=== PATIENT | male | born 1960 | race Caucasian/White ===

== ENCOUNTER → 2016-08-24 | Outpatient (REF) | LOC: WSOH 08:55 | DX: Z00.00 Encounter for general adult medical examination without abnormal findings (principal) ==

== ENCOUNTER → 2016-08-24 | Outpatient (REF) | LOC: WSOH 10:00 | DX: Z02.89 Encounter for other administrative examinations (principal) ==

== ENCOUNTER 2017-02-18 23:38 | Emergency (ER) | payer BC ==
[~2017-02-18] VITALS: Ht 182.9 cm; Wt 104.5 kg
[2017-02-18 23:43] VITALS: BP 180/88; PULSE 76; TEMP 98.1
== END 2017-02-19 01:43 | disposition left against medical advice (07) ==
LOC: COL.ER 23:38
DX: L50.9 Urticaria, unspecified (principal); Z96.652 Presence of left artificial knee joint

== ENCOUNTER 2018-02-16 01:23 | Emergency (ER) | payer BC ==
[~2018-02-16] VITALS: Ht 182.9 cm; Wt 106.8 kg
[2018-02-16 01:26] VITALS: TEMP 98.3
[2018-02-16] MEDS ORDERED: LOPRESSOR 550 MG/TAB PO (01:59)
[2018-02-16] MEDS ORDERED: NORVASC 5MG5 MG/TAB PO (02:00)
[2018-02-16] MEDS ORDERED: ZOCOR 20MG20 MG PO (02:00)
[2018-02-16] MEDS ORDERED: PRINIVIL20 MG PO ×2 (02:00→02:01)
[2018-02-16] MEDS ORDERED: LEXAPRO 10MG10 MG PO (02:00)
[2018-02-16] MEDS ORDERED: PLAVIX 75MG TAB75 MG PO (02:00)
[2018-02-16 02:01] LABS: BASO % 0.3 % (0.0-2.0); EOS # 0.2 (0.0-0.7); EOS % 2.1 % (0-4.0); GRAN # 6.3 (1.4-6.5); HEMATOCRIT 45.8 % (42.0-52.0); HEMOGLOBIN 15.1 g/dl (13.5-18.0); LYMPH # 2.2 (1.2-3.4); LYMPH % 23.4 % (20.0-51.0); MEAN CELL VOLUME 83 fl (80.0-100.0); MEAN CORPUSCULAR HEMOGLOBIN 27 pg (27.0-31.0); MEAN CORPUSCULAR HGB CONC 33 g/dl (33.0-37.0); MONO # 0.6 (0.1-0.6); MONO % 6.1 % (1.7-9.3); PLATELET COUNT 203 K/mm3 (130-400); RED BLOOD COUNT 5.51 M/mm3 (4.20-5.60); REDCELL DISTRIBUTION WIDTH-CV 13.9 % (11.5-14.5)
[2018-02-16] MEDS ORDERED: SINGULAIR 110 MG/TAB PO (02:01)
[2018-02-16 02:16] LABS: ALBUMIN 4.1 gm/dL (3.5-5.0); BILIRUBIN,TOTAL 0.6 mg/dL (0.0-1.0); CALCIUM 8.9 mg/dL (8.4-10.2); TOTAL PROTEIN 7.5 gm/dL (6.4-8.2)
[2018-02-16 02:48] VITALS: PULSE 54
[2018-02-16 04:13] VITALS: BP 151/97
== END 2018-02-16 04:13 | disposition home or self-care (01) ==
LOC: COL.ER 01:23
PROVIDERS: Emergency Medicine
DX: I10 Essential (primary) hypertension (principal); Z86.73 Personal history of transient ischemic attack (TIA), and cerebral infarction without residual deficits; Z79.02 Long term (current) use of antithrombotics/antiplatelets

== ENCOUNTER 2018-04-03 15:00 | Outpatient (RCR) | payer BC ==
[~2018-04-03 15:00] MED LIST: LEXAPRO 10MG10 MG PO; LOPRESSOR 550 MG/TAB PO; NORVASC 5MG5 MG/TAB PO; PLAVIX 75MG TAB75 MG PO; PRINIVIL20 MG PO; SINGULAIR 110 MG/TAB PO; ZOCOR 20MG20 MG PO
== END 2018-05-09 | disposition home or self-care (01) ==
LOC: MKS.ESL.OT
DX: I69.331 Monoplegia of upper limb following cerebral infarction affecting right dominant side (principal)

== ENCOUNTER → 2018-10-18 | Outpatient (CLI) | payer OTHER | LOC: COL.PUL 07:47 | DX: J44.9 Chronic obstructive pulmonary disease, unspecified (principal); J98.4 Other disorders of lung ==

== ENCOUNTER → 2018-11-01 | Outpatient (CLI) | payer OTHER | LOC: COL.RAD 10:33 | DX: J98.6 Disorders of diaphragm (principal) ==

== ENCOUNTER → 2019-03-14 | Outpatient (CLI) | payer BC | LOC: COL.RAD 07:30 | DX: Z12.5 Encounter for screening for malignant neoplasm of prostate (principal); N20.0 Calculus of kidney; E78.5 Hyperlipidemia, unspecified; I10 Essential (primary) hypertension; I63.9 Cerebral infarction, unspecified; Z87.442 Personal history of urinary calculi; Z98.890 Other specified postprocedural states | CPT/HCPCS: Q9967 ==